=== PATIENT | male | born 1975 | race Caucasian/White ===

== ENCOUNTER 2016-08-15 18:00 | Emergency (ER) | payer SELFPAY ==
[2016-08-15 18:00] VITALS: BMI 24.4
[2016-08-15 18:07] VITALS: RESP 17; TEMP 98.1
--- NOTE | 2016-08-15 19:06 | ED PDOC ---
Arrival/HPI - General Chief Complaint: Cough, Cold, Congestion Time Seen by Provider: 08/15/16 18:11 Historian: Patient - History of Present Illness Narrative History of Present Illness (Text): 08/15/16 19:03 Patient with past medical history of sarcoidosis, is not a smoker, complains of dry cough for 3 weeks. Otherwise: (-) fever, (-) chills, (-) chest pain, (-) dyspnea, (-) hemoptysis, (-) upper back pain, (-) travel, (-) recent prolonged immobility. PMD does not recalled name Past Medical History - Provider Review Nursing Documentation Reviewed: Yes - Past History Past History: No Previous - Tetanus Immunization Tetanus Immunization: Unknown - Cardiac Hx Cardiac Disorders: No - Pulmonary Hx Respiratory Disorders: Yes Other/Comment: SARCOIDOSIS - Neurological Hx Neurological Disorder: No - HEENT Hx HEENT Disorder: No - Renal Hx Renal Disorder: No - Endocrine/Metabolic Hx Endocrine Disorders: No - Hematological/Oncological Hx Blood Disorders: No - Integumentary Hx Dermatological Disorder: No - Musculoskeletal/Rheumatological Hx Musculoskeletal Disorders: No - Gastrointestinal Hx Gastrointestinal Disorders: No - Genitourinary/Gynecological Hx Genitourinary Disorders: No - Psychiatric Hx Psychophysiologic Disorder: No Hx Depression: No Hx Emotional Abuse: No Hx Physical Abuse: No Hx Substance Use: No - Surgical History Other/Comment: LUNG BX - Suicidal Assessment Feels Threatened In Home Enviroment: No Family/Social History - Physician Review Nursing Documentation Reviewed: Yes Family/Social History: No Known Family HX Smoking Status: Never Smoked Hx Alcohol Use: No Hx Substance Use: No Allergies/Home Meds Allergies/Adverse Reactions: Allergies No Known Allergies Allergy (Verified 08/15/16 18:01) Home Medications: Home Meds Medication Instructions Recorded Confirmed Benzonatate [Benzonatate] 1 tab PO DAILY 08/15/16 08/15/16 Prednisone [Brad] 10 mg PO DAILY 08/15/16 08/15/16 Review of Systems - Review of Systems Constitutional: Normal. absent: Fatigue, Weight Change, Fevers Eyes: Normal. absent: Vision Changes, Photophobia ENT: Normal. absent: Hearing Changes, Sore Throat, Rhinorrhea Respiratory: Normal, Cough. absent: SOB, Sputum Cardiovascular: Normal. absent: Chest Pain, Palpitations, Edema Musculoskeletal: Normal. absent: Arthralgias, Back Pain, Neck Pain Skin: Normal. absent: Rash, Pruritis, Skin Lesions Physical Exam - Physical Exam Narrative Physical Exam (Text): 08/15/16 19:04 GENERAL APPEARANCE: Patient is awake, alert, oriented x 3, in no acute distress. SKIN: Warm, dry; (-) cyanosis. EYES: (-) conjunctival pallor. ENMT: Mucous membranes moist. Airway patent: (-) stridor. Pharynx: (-) swelling, (-) erythema, (-) exudate. NECK: (-) tenderness, (-) stiffness, (-) lymphadenopathy. CHEST AND RESPIRATORY: (-) rhonchi, (-) rales, (-) wheezes, (-) pleural rub; breath sounds equal bilaterally. HEART AND CARDIOVASCULAR: (-) irregularity; (-) murmur, (-) gallop. ABDOMEN AND GI: Soft; (-) tenderness. EXTREMITIES: (-) deformity; (-) edema. NEURO AND PSYCH: Mental status as above. Cranial nerves grossly intact; strength symmetric. Vital Signs Temp Pulse Resp BP Pulse Ox 08/15/16 18:06 98.1 F 81 17 130/78 97 Medical Decision Making ED Course and Treatment: 08/15/16 19:05 40 yo M with past medical history of sarcoidosis, complains of a 3 week history of a dry cough. Exam is normal otherwise. Chest x-ray ordered. CXR : NAD, as read by PA Patient advised that official radiology read of XR is still pending and will call the patient if there is any discrepancy within 24 hours. Based on history, exam and diagnostic results plan will be for outpatient follow -up. Prescription provided. Patient states he fully agrees with and understands discharge instructions. States that he agrees with the plan and disposition. Verbalized and repeated discharge instructions and plan. I have given the patient opportunity to ask any additional questions. Follow up with primary care physician in 1-2 days without fail. Advised to take medication as prescribed. Return to the emergency room at any time for any new or worsening symptoms. - RAD Interpretation Radiology Orders: 08/15/16 18:11 CHEST TWO VIEWS (PA/LAT) [RAD] Stat - PA / [employer] / Resident Statement MD/DO has reviewed & agrees with the documentation as recorded. Disposition/Present on Arrival - Present on Arrival Any Indicators Present on Arrival: No History of DVT/PE: No History of Uncontrolled Diabetes: No Urinary Catheter: No History of Decub. Ulcer: No History Surgical Site Infection Following: None - Disposition Have Diagnosis and Disposition been Completed?: Yes Diagnosis: Cough, Bronchitis Disposition: HOME/ ROUTINE Disposition Time: 19:06 Patient Plan: Discharge Condition: STABLE Discharge Instructions (ExitCare): Acute Bronchitis (ED) Print Language: [place] Additional Instructions: Thank you for letting us take care of you today. You were treated for proctitis. The emergency medical care you received today was directed at your acute symptoms. If you were prescribed any medication, please fill it and take as directed. It may take several days for your symptoms to resolve. Return to the Emergency Department if your symptoms worsen, do not improve, or if you have any other problems. Please contact your doctor in 2 days for re-evaluation and follow up. Bring any paperwork you were given at discharge with you along with any medications you are taking to your follow up visit. Our treatment cannot replace ongoing medical care by a primary care provider (PCP) outside of the emergency department. Thank you for allowing the [facility] team to be part of your care today. Prescriptions: Azithromycin [Z-[place]] 250 mg PO DAILY #6 tab Referrals: Eric Oconnell Jr., MD [Primary Care Provider] - Follow up with primary
[2016-08-15 19:13] VITALS: BP 129/80; PULSE 78; O2SAT 99
--- NOTE | 2016-08-16 07:18 | RAD ---
HISTORY: cough COMPARISON: Chest x-ray performed 08/24/12, CT chest performed 08/24/12 TECHNIQUE: Chest PA and lateral FINDINGS: LUNGS: Bilateral hilar prominence, may reflect underlying adenopathy. Please note that chest x-ray has limited sensitivity for the detection of pulmonary masses. PLEURA: No significant pleural effusion identified. No definite pneumothorax . CARDIOVASCULAR: The cardiomediastinal silhouette appears within normal limits of size. OSSEOUS STRUCTURES: No acute osseous abnormality identified. VISUALIZED UPPER ABDOMEN: Unremarkable. OTHER FINDINGS: None. IMPRESSION: Bilateral hilar prominence, may reflect underlying adenopathy.
== END 2016-08-15 19:15 | disposition home or self-care (01) ==
LOC: ED 18:00
DX: R05 Cough (principal); J40 Bronchitis, not specified as acute or chronic

== ENCOUNTER 2018-04-09 14:21 | Emergency (ER) | payer MEDICAID ==
[2018-04-09 14:21] VITALS: BMI 24.4
[2018-04-09 14:27] VITALS: O2SAT 99
--- NOTE | 2018-04-09 15:09 | RAD ---
Date of service: 04/09/2018 HISTORY: cough x 2 weeks COMPARISON: 08/15/2016 TECHNIQUE: Chest PA and lateral FINDINGS: LUNGS: No active pulmonary disease. PLEURA: No significant pleural effusion identified. No pneumothorax apparent. CARDIOVASCULAR: No aortic atherosclerotic calcification present. Normal cardiac size. No pulmonary vascular congestion. OSSEOUS STRUCTURES: No significant abnormalities. VISUALIZED UPPER ABDOMEN: Normal. OTHER FINDINGS: None. IMPRESSION: No active disease.
--- NOTE | 2018-04-09 15:14 | ED PDOC ---
Arrival/HPI - General Historian: Patient - History of Present Illness Narrative History of Present Illness (Text): 04/09/18 15:31 42-year-old otherwise healthy male presents today with cough 2 weeks. Patient states she's been having cough nasal congestion sore throat that has been worsening. Patient states over the past 5 days the cough has become productive with a yellowish sputum. Patient states that his family at home is now sick with similar symptoms. Patient denies chest pain or shortness of breath. No abdominal pain. Denies headaches dizziness or weakness. Patient states she's been taking Tylenol and TheraFlu without improvement of his symptoms. No other complaints <Sobia Johnson - Last Filed: 04/09/18 20:12> <Ariel Alvarado - Last Filed: 04/10/18 12:41> - General Chief Complaint: Cough, Cold, Congestion Time Seen by Provider: 04/09/18 14:23 Past Medical History - Provider Review Nursing Documentation Reviewed: Yes - Travel History Have you recently traveled outside [place] w/in the past 3 mons?: No - Past History Past History: No Previous - Tetanus Immunization Tetanus Immunization: Unknown - Cardiac Hx Cardiac Disorders: No - Pulmonary Hx Respiratory Disorders: Yes Other/Comment: SARCOIDOSIS - Neurological Hx Neurological Disorder: No - HEENT Hx HEENT Disorder: No - Renal Hx Renal Disorder: No - Endocrine/Metabolic Hx Endocrine Disorders: No - Hematological/Oncological Hx Blood Disorders: No - Integumentary Hx Dermatological Disorder: No - Musculoskeletal/Rheumatological Hx Musculoskeletal Disorders: No - Gastrointestinal Hx Gastrointestinal Disorders: No - Genitourinary/Gynecological Hx Genitourinary Disorders: No - Psychiatric Hx Psychophysiologic Disorder: No Hx Depression: No Hx Emotional Abuse: No Hx Physical Abuse: No Hx Substance Use: No - Surgical History Other/Comment: LUNG BX - Suicidal Assessment Feels Threatened In Home Enviroment: No <Sobia Johnson - Last Filed: 04/09/18 20:12> Family/Social History - Physician Review Nursing Documentation Reviewed: Yes Family/Social History: Unknown Family HX Smoking Status: Never Smoked Hx Alcohol Use: No Hx Substance Use: No <Sobia Johnson - Last Filed: 04/09/18 20:12> Allergies/Home Meds <Sobia Johnson - Last Filed: 04/09/18 20:12> <Ariel Alvarado - Last Filed: 04/10/18 12:41> Allergies/Adverse Reactions: Allergies No Known Allergies Allergy (Verified 04/09/18 14:27) Review of Systems - Review of Systems Constitutional: absent: Fatigue, Fevers ENT: Sore Throat, Sinus Congestion Respiratory: Cough, Sputum. absent: SOB Cardiovascular: absent: Chest Pain, Palpitations Gastrointestinal: absent: Abdominal Pain, Nausea, Vomiting Genitourinary Male: absent: Dysuria, Frequency, Hematuria Musculoskeletal: absent: Arthralgias, Back Pain, Neck Pain Skin: absent: Rash, Pruritis Neurological: absent: Headache, Dizziness Psychiatric: absent: Anxiety, Depression <Sobia Johnson T - Last Filed: 04/09/18 20:12> Physical Exam Vital Signs Reviewed: Yes Vital Signs Temp Pulse Resp BP Pulse Ox 04/09/18 14:24 97.6 F 80 18 140/97 H 99 Temperature: Afebrile Blood Pressure: Hypertensive Pulse: Regular Respiratory Rate: Normal Appearance: Positive for: Well-Appearing, Non-Toxic, Comfortable Pain Distress: None Mental Status: Positive for: Alert and Oriented X 3 - Systems Exam Head: Present: Atraumatic Conjunctiva: Present: Normal Ears: Present: Normal, NORMAL TM Mouth: Present: Moist Mucous Membranes. No: Drooling, Trismus Pharnyx: Present: Normal. No: ERYTHEMA, EXUDATE, TONSILS ENLARGED, Peritonsilar Swelling, Uvular Deviation Nose (External): Present: Atraumatic Nose (Internal): Present: Normal Inspection Neck: Present: Normal Range of Motion Respiratory/Chest: Present: Clear to Auscultation, Good Air Exchange. No: Respiratory Distress, Accessory Muscle Use, Wheezes, Retracting, Rhonchi, Tachypneic Cardiovascular: Present: Regular Rate and Rhythm, Normal S1, S2. No: Murmurs Neurological: Present: GCS=15, Speech Normal Skin: Present: Warm, Dry, Normal Color. No: Rashes Psychiatric: Present: Alert, Oriented x 3 <Sobia Johnson T - Last Filed: 04/09/18 20:12> Vital Signs Temp Pulse Resp BP Pulse Ox 04/09/18 16:03 98 F 82 20 116/72 99 04/09/18 14:24 97.6 F 80 18 140/97 H 99 <Ariel Alvarado - Last Filed: 04/10/18 12:41> Medical Decision Making ED Course and Treatment: 04/09/18 15:20 Patient is nontoxic well-appearing in no distress. Vital signs are stable. cxr; no infiltrate or effusion zithromax po I advised follow up with primary care physician within the next 2 days. I advised increase fluids and return if symptoms worsen persist or if new symptoms develop. Patient verbalizes understanding of discharge instructions and need for immediate followup. all aspects of this case were discussed the attending of record. Impression; Cough Motrin every 6 hours as needed for pain/fever reduction Zithromax one tablet once daily x4 days FLonase; 2 sprays each nostril once daily. albuterol 2 puffs every 4-6 hours as needed for cough. Increase fluids Followup with primary care physician the next 2 days Return if symptoms worsen persist or if new symptoms develop - RAD Interpretation Radiology Orders: 04/09/18 14:46 CHEST TWO VIEWS (PA/LAT) [RAD] Stat <Sobia Johnson - Last Filed: 04/09/18 20:12> - RAD Interpretation Radiology Orders: 04/09/18 14:46 CHEST TWO VIEWS (PA/LAT) [RAD] Stat - Medication Orders Current Medication Orders: Discontinued Medications Azithromycin (Zithromax) 500 mg PO STAT STA; Protocol Stop: 04/09/18 15:19 Last Admin: 04/09/18 15:58 Dose: 500 mg <Ariel Alvarado - Last Filed: 04/10/18 12:41> - PA / [employer] / Resident Statement / has reviewed & agrees with the documentation as recorded. <Ariel Alvarado - Last Filed: 04/10/18 12:41> Disposition/Present on Arrival - Present on Arrival Any Indicators Present on Arrival: No History of DVT/PE: No History of Uncontrolled Diabetes: No Urinary Catheter: No History of Decub. Ulcer: No History Surgical Site Infection Following: None - Disposition Have Diagnosis and Disposition been Completed?: Yes Disposition Time: 15:10 Patient Plan: Discharge <Sobia Johnson - Last Filed: 04/09/18 20:12> <Ariel Alvarado - Last Filed: 04/10/18 12:41> - Disposition Diagnosis: Cough Disposition: HOME/ ROUTINE Condition: GOOD Discharge Instructions (ExitCare): Cough, Adult (DC) Additional Instructions: Motrin every 6 hours as needed for pain/fever reduction Zithromax one tablet once daily x4 days FLonase; 2 sprays each nostril once daily. albuterol 2 puffs every 4-6 hours as needed for cough. Increase fluids Followup with primary care physician the next 2 days Return if symptoms worsen persist or if new symptoms develop Prescriptions: Fluticasone Nasal [Flonase] 2 spr NS DAILY #1 spr RX: Albuterol HFA [Ventolin HFA 90 mcg/actuation (8 g)] 2 puff IH [id number] PRN #1 inhaler PRN Reason: Cough Azithromycin [Zithromax] 250 mg PO DAILY #4 tab Referrals: Mariola Ashley MD [Medical Doctor] - Follow up with primary [employer] [Outside] - Follow up with primary Forms: [facility] (Italian), WORK NOTE
[2018-04-09 16:04] VITALS: BP 116/72; PULSE 82; RESP 20; TEMP 98
== END 2018-04-09 16:03 | disposition home or self-care (01) ==
LOC: ED 14:21
DX: R05 Cough (principal); D86.9 Sarcoidosis, unspecified